=== PATIENT | male | born 1940 | race Two or more races ===

== ENCOUNTER 2017-08-18 00:14 | Inpatient (IN) | payer MEDICARE, OTHER ==
[~2017-08-18] VITALS: Ht 170.2 cm; Wt 86.3 kg
[2017-08-18] VITALS (8 sets, daily range): BP systolic 113–173; BP diastolic 59–77
[2017-08-18] MEDS ORDERED: Cefepime HCl 1 GM in D5W 55 ML IVPB ONE (01:00)
[2017-08-18 01:12] LABS: BASOPHILS % (AUTO) 0.8 % (0.0-2.0); MEAN CORPUSCULAR VOLUME 90 FL (80-99); MONOCYTES % (AUTO) 7.7 % (1.0-10.0); NEUTROPHILS % (AUTO) 64.4 % (45.0-75.0); PLATELET COUNT 152 K/UL (150-450); RED BLOOD COUNT 4.45 M/UL (4.70-6.10); WHITE BLOOD COUNT 9.7 K/UL (4.8-10.8)
[2017-08-18 01:12] LABS: BILIRUBIN, URINE NEGATIVE (NEGATIVE); COLOR,URINE PALE YELLOW; GLUCOSE, URINE (UA) NEGATIVE (NEGATIVE); KETONES,URINE NEGATIVE (NEGATIVE); LEUKOCYTE ESTERASE ,URINE 3+ (NEGATIVE); NITRITE,URINE POSITIVE (NEGATIVE); PH,URINE 6.5 (4.5-8.0); PROTEIN,URINE 3+ (NEGATIVE); UROBILINOGEN,URINE NORMAL MG/DL (0.0-1.0)
[2017-08-18 01:20] LABS: APPEARANCE,URINE CLOUDY
[2017-08-18 01:22] LABS: ANION GAP 9 mmol/L (5-15); BLOOD UREA NITROGEN 35 mg/dL (7-18); CALCIUM 9.1 MG/DL (8.5-10.1); CARBON DIOXIDE 28 MMOL/L (21-32); CHLORIDE 102 MMOL/L (98-107); CREATININE 1.6 MG/DL (0.55-1.30); POTASSIUM 4.1 MMOL/L (3.5-5.1); SODIUM 139 MMOL/L (136-145)
[2017-08-18 01:31] LABS: ALANINE AMINOTRANSFERASE 30 U/L (12-78); ALBUMIN 3.3 G/DL (3.4-5.0); ALBUMIN/GLOBULIN RATIO 0.7 (1.0-2.7); ALKALINE PHOSPHATASE 94 U/L (46-116); ASPARTATE AMINO TRANSFERASE 21 U/L (15-37); BILIRUBIN,TOTAL 0.4 MG/DL (0.2-1.0); CREATINE KINASE 118 U/L (26-308)
[2017-08-18] MEDS ORDERED: TORSEMIDE10 MG PO (02:28)
[2017-08-18] MEDS ORDERED: JANUVIA25 MG ORAL (02:28)
[2017-08-18] MEDS ORDERED: DETROL2 MG ORAL (02:28)
[2017-08-18] MEDS ORDERED: METFORMIN HCL1000 M1 ORAL (02:28)
[2017-08-18] MEDS ORDERED: HYDRALAZINE HCL25 M1 ORAL (02:28)
[2017-08-18] MEDS ORDERED: TAMSULOSIN HCL0.4 MG ORAL (02:31)
[2017-08-18] MEDS ORDERED: ASPIR 8181 MG ORAL (02:31)
[2017-08-18] MEDS ORDERED: VOLTAREN 1% TOPIC (02:31)
[2017-08-18] MEDS ORDERED: STARLIX60 MG ORAL (02:31)
[2017-08-18] MEDS ORDERED: CATAPRES0.2 MG ORAL (02:31)
[2017-08-18] MEDS ORDERED: ATORVASTATIN CA80 MG ORAL (02:33)
[2017-08-18] MEDS ORDERED: COREG12.5 MG ORAL (02:33)
[2017-08-18] MEDS ORDERED: LEVOTHYROXINE125 MCG ORAL (02:33)
[2017-08-18] MEDS ORDERED: MECLIZINE HCL12.5 MG ORAL (02:33)
--- NOTE | 2017-08-18 03:48 | Emergency Room Report ---
History of Present Illness General Chief Complaint: Back Pain-No Injury Source: Patient, Family Member, EMS Present Illness HPI Patient presents with increased weakness and some lethargy. He has had previous strokes in the past. He is being treated for a bladder infection at this time. He is on cefuroxime. The patient doesn't state that he has increased weakness at this time but his is reporting this. He denies any headache. According to paramedics he had complained of back pain, R flank area. Pain reported 6/10 aching, constant. EKG with BBB sent to [facility] and they directed the patient to us. CVA X 3 in past. Chronic L weakness. He states the same, but claims worsened. No pain, dyspnea, cough, sore throat, rashes, dysuria, change in bowels, joint pain, change in vision. Somewhat depressed. Diabetic on oral medication. Allergies: Coded Allergies: BENAZEPRIL (Verified Allergy, Unknown, Itching, 08/18/17) ALL OVER BODY ITCHING. Patient History Past Medical History: see triage record Social History: Denies: smoking, alcohol use Social History Narrative home Reviewed Nursing Documentation: PMH: Agreed; PSxH: Agreed Nursing Documentation-PMH Hx Hypertension: Yes Hx Diabetes: Yes Hx Cerebrovascular Accident: Yes Review of Systems All Other Systems: negative except mentioned in HPI Physical Exam Vital Signs Date Time Temp Pulse Resp B/P (MAP) Pulse Ox O2 Delivery O2 Flow Rate FiO2 08/18/17 00:19 98.7 78 16 172/88 99 Room Air 98.8 Sp02 EP Interpretation: reviewed, normal General Appearance: well appearing, no apparent distress, GCS 15 Head: normocephalic Eyes: bilateral eye normal inspection, bilateral eye PERRL ENT: moist mucus membranes Neck: supple Respiratory: lungs clear, normal breath sounds Cardiovascular #1: regular rate, rhythm Cardiovascular #2: 2+ radial (R) Gastrointestinal: normal inspection, normal bowel sounds, non tender, no mass, non-distended Genitourinary: no CVA tenderness Musculoskeletal: back normal, gait/station normal, normal range of motion Neurologic: alert, no Babinski, motor weakness - L hand/arm 4/5 versus R 5/5, oriented - X2 Psychiatric: depressed affect Skin: no rash Medical Decision Making Diagnostic Impression: Primary Impression: Sepsis Qualified Codes: A41.9 - Sepsis, unspecified organism Additional Impressions: Urinary tract infection Qualified Codes: N39.0 - Urinary tract infection, site not specified Status post stroke Renal insufficiency ER Course Patient with increased weakness, ALOC and treatment for UTI. claims L weakness and mentation is worsened. DDx: CVA, sepsis, UTI, electrolyte abnormality, AMI, pyelonephritis amongst others. Evaluation with CT, EKG, CXR and labs. Concern for possible UTI with resistant organisms. Difficult to assess status of L weakness as variable reports between and patient. Weakness might be due to underlying infection or other global process. IV hydration begun. EKG without injury. CXR clear. CT R parietal craniomalacia (not reported). Labs with normal WBC, pyuria, renal insufficiency. Antibiotics broadened. Complicated patient who needs observation and repeated neurologic evaluations with treatment of possible resistant UTI. Admit tele Dr. Oneil. Laboratory Tests Test 08/18/17 00:44 08/18/17 00:56 White Blood Count 9.7 K/UL (4.8-10.8) Red Blood Count 4.45 M/UL (4.70-6.10) L Hemoglobin 13.0 G/DL (14.2-18.0) L Hematocrit 40.0 % (42.0-52.0) L Mean Corpuscular Volume 90 FL (80-99) Mean Corpuscular Hemoglobin 29.3 PG (27.0-31.0) Mean Corpuscular Hemoglobin Concent 32.6 G/DL (32.0-36.0) Red Cell Distribution Width 14.0 % (11.6-14.8) Platelet Count 152 K/UL (150-450) Mean Platelet Volume 8.5 FL (6.5-10.1) Neutrophils (%) (Auto) 64.4 % (45.0-75.0) Lymphocytes (%) (Auto) 25.0 % (20.0-45.0) Monocytes (%) (Auto) 7.7 % (1.0-10.0) Eosinophils (%) (Auto) 2.0 % (0.0-3.0) Basophils (%) (Auto) 0.8 % (0.0-2.0) Prothrombin Time 10.8 SEC (9.30-11.50) Prothrombin Time INR 1.0 (0.9-1.1) PTT 30 SEC (23-33) Sodium Level 139 MMOL/L (136-145) Potassium Level 4.1 MMOL/L (3.5-5.1) Chloride Level 102 MMOL/L (98-107) Carbon Dioxide Level 28 MMOL/L (21-32) Anion Gap 9 mmol/L (5-15) Blood Urea Nitrogen 35 mg/dL (7-18) H Creatinine 1.6 MG/DL (0.55-1.30) H Estimate Glomerular Filtration Rate mL/min (>60) Glucose Level 195 MG/DL (74-106) H Lactic Acid Level 1.30 mmol/L (0.4-2.0) Calcium Level 9.1 MG/DL (8.5-10.1) Magnesium Level 2.1 MG/DL (1.8-2.4) Total Bilirubin 0.4 MG/DL (0.2-1.0) Aspartate Amino Transferase (AST) 21 U/L (15-37) Alanine Aminotransferase (ALT) 30 U/L (12-78) Alkaline Phosphatase 94 U/L (46-116) Total Creatine Kinase 118 U/L (26-308) Troponin I 0.003 ng/mL (0.000-0.056) Pro-B-Type Natriuretic Peptide 343 pg/mL (0-125) H Total Protein 8.3 G/DL (6.4-8.2) H Albumin 3.3 G/DL (3.4-5.0) L Globulin 5.0 g/dL Albumin/Globulin Ratio 0.7 (1.0-2.7) L Lipase 242 U/L (73-393) Urine Color Pale yellow Urine Appearance Cloudy Urine pH 6.5 (4.5-8.0) Urine Specific [place] 1.010 (1.005-1.035) Urine Protein 3+ (NEGATIVE) H Urine Glucose (UA) Negative (NEGATIVE) Urine Ketones Negative (NEGATIVE) Urine Occult Blood 3+ (NEGATIVE) H Urine Nitrite Positive (NEGATIVE) H Urine Bilirubin Negative (NEGATIVE) Urine Urobilinogen Normal MG/DL (0.0-1.0) Urine Leukocyte Esterase 3+ (NEGATIVE) H Urine RBC 5-10 /HPF (0 - 0) H Urine WBC Tntc /HPF (0 - 0) H Urine Squamous Epithelial Cells None /LPF (NONE/OCC) Urine Bacteria Many /HPF (NONE) H EKG Diagnostic Results Rate: normal Rhythm: NSR ST Segments: no acute changes Rhythm Strip Diag. 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 Last Vital Signs Date Time Temp Pulse Resp B/P (MAP) Pulse Ox O2 Delivery O2 Flow Rate FiO2 08/18/17 01:50 70 13 173/69 98 Room Air 08/18/17 00:19 98.7 98.8 Status: improved Disposition: ADMITTED INPATIENT Condition: Serious Referrals: NON PHYSICIAN (PCP) Fredy Christiansen M.D. Aug 18, 2017 03:48
[2017-08-18] MEDS ORDERED: Torsemide 10mg tab ORAL SCH (09:00)
[2017-08-18] MEDS: metFORMIN 500mg tab ORAL SCH ×2 (09:26→17:17)
[2017-08-18] MEDS: Tolterodine 2mg tab ORAL SCH ×2 (09:26→17:16)
[2017-08-18] MEDS: Aspirin Baby 81mg ORAL SCH (09:26)
[2017-08-18] MEDS: Carvedilol 12.5mg tab ORAL SCH ×2 (09:26→21:11)
[2017-08-18] MEDS: Heparin 5000 units/ml inj SUBQ SCH ×2 (09:27→21:13)
--- NOTE | 2017-08-18 09:49 | Diagnostic Imaging Report ---
Indication: Weakness Technique: Continuous helical CT scanning of the head was performed utilizing automated exposure control without intravenous contrast material. Axial and coronal reconstructions were obtained. Comparison: None CT dose: Total DLP 1347.93 mGycm; CTDI vol 70.38 mGy Findings: There is no acute intracranial hemorrhage, mass effect or midline shift. The ventricles, cisterns and sulci are prominent consistent with atrophy. Periventricular hypoattenuation is seen, a nonspecific finding is commonly related to sequela of chronic microvascular ischemia. There are atherosclerotic vascular calcifications. There is a more focal area of low attenuation in the right frontal lobe which is likely represent an area of chronic ischemia/encephalomalacia as there is ex vacuo dilatation of the anterior horn of the right lateral ventricle. Possibility of acute on chronic ischemia is not excluded. Visualized mastoid air cells are clear. There is opacification of some left-sided ethmoid cells as well as the left frontal sinus. No focal lesions of the bony calvarium or soft tissues of the scalp are seen. IMPRESSION: * No evidence of acute intracranial hemorrhage, mass effect or midline shift. * Focal area of low attenuation/encephalomalacia in the right frontal lobe likely sequela of remote ischemia. Correlate clinically. If there is concern for acute on chronic ischemia then further evaluation with MRI is recommended. * Atrophy and nonspecific periventricular hypoattenuation suggestive of chronic ischemic microvascular changes. * Mild sinus disease, likely acute in the left frontal sinus. This is slightly discrepant from the preliminary interpretation of the liver radiologist. Study obtained via the emergency department however patient admitted to the hospital at time of dictation of the final report. Findings of final report discussed with treating physician Dr. Oneil via telephone conversation approximately 9:40 AM on 08/18/2017. The CT scanner at [facility] is accredited by the [employer] and the scans are performed using protocols designed to limit radiation exposure to as low as reasonably achievable to attain images of sufficient resolution adequate for diagnostic evaluation.
--- NOTE | 2017-08-18 09:50 | Diagnostic Imaging Report ---
Indication: Weakness Technique: XRAY Chest 1v Comparison: None Findings: Heart size and mediastinal contours are within normal limits for technique. There is no focal consolidation, pneumothorax or pleural effusion. Osseous structures demonstrate no acute abnormality. Impression: No radiographic evidence of acute cardiopulmonary disease.
[2017-08-18] MEDS: HydrALAZINE 25mg tab ORAL SCH ×2 (12:00→17:16)
[2017-08-18] MEDS: NovoLOG Insulin Flexpen SUBQ SCH ×3 (12:09→21:00)
[2017-08-18] MEDS ORDERED: Piperacillin/Tazobactam 3.375 GM in D5W 110 ML IVPB SCH (14:00)
--- NOTE | 2017-08-18 14:05 | Cardiology Report ---
APPROVED REPORT EKG Measurement Heart [id number] IN [id number] [id number] Normal sinus rhythm T wave abnormality, consider anterior ischemia Abnormal ECG
[2017-08-18] MEDS: Piperacillin/Tazobactam 3.375 GM in NS 110 ML IVPB SCH ×2 (14:11→21:11)
[2017-08-18] MEDS: Atorvastatin 80mg tab ORAL SCH (21:10)
[2017-08-18] MEDS: Tamsulosin 0.4mg cap ORAL SCH (21:11)
--- NOTE | 2017-08-18 22:00 | History and Physical Report ---
DATE OF ADMISSION: 08/18/2017 CHIEF COMPLAINT AND REASON FOR HOSPITALIZATION: The patient admitted with dysuria, likely urinary tract infection, decline in status. HISTORY OF PRESENT ILLNESS: The patient is 77-year-old man with a history of prior strokes, hypertension, diabetes. He saw a doctor at a clinic a few days ago and was given oral antibiotics but despite that he is complaining of dysuria and generalized weakness, progressive. He has persistent pyuria. He has right low back pain, difficulty walking. He has had a stroke with left-sided weakness, uses a walker at home. PAST SURGERIES: Eye surgery and stimulator, it is not clear if that is spinal cord problems. HABITS: He is a nonsmoker and nondrinker currently. ALLERGIES: Benazepril. HOME MEDICATIONS: Listed on the computer include aspirin, atorvastatin, carvedilol, clonidine, hydralazine, levothyroxine, meclizine, metformin, Starlix, Januvia, tamsulosin, Detrol, torsemide, and Voltaren topical. SYSTEM REVIEW: HEAD, EYES, EARS, NOSE, AND THROAT: History of eye surgery with stable vision. Hearing is good. ENDOCRINE: History of diabetes. No thyroid disease. PULMONARY: No asthma or TB. CARDIAC: History of hypertension and hyperlipidemia. No angina or [place]. GASTROINTESTINAL: No ulcers or GI bleeding. GENITOURINARY: He has had a history of UTIs, some incontinence and dysuria. NEUROLOGIC: History of CVA with left-sided weakness in the past. PHYSICAL EXAMINATION: GENERAL: The patient is a well-developed man, sitting up in a chair. VITAL SIGNS: Temperature 97.8, pulse 68, respirations 20, and blood pressure 147/63. HEAD EYES, EARS, NOSE, AND THROAT: Sclerae are nonicteric. Ocular motions intact in all directions. Oral mucosa moist. NECK: No adenopathy or thyroid enlargement. LUNGS: Clear. HEART: Regular rhythm. I hear no murmur. ABDOMEN: Soft without organomegaly or masses. GENITOURINARY: Penis and testes normal. RECTAL: Deferred. EXTREMITIES: No edema, cyanosis or clubbing. There are degenerative changes in the knees. NEUROLOGIC: He is alert and responsive. Ocular motions intact in all directions. Smile is symmetric. He moves all extremities. [place] is equal bilaterally. He stands with mild assist and is able use a walker but has a mild left . PERTINENT LABORATORIES: White count 9.7, hemoglobin 13. BUN 35, creatinine 1.6. Electrolytes normal. Glucose 185. Troponin 0.003. Albumin 3.3. Urinalysis shows too numerous to count white cells per high-power field, 3+ proteinuria. IMPRESSION: 1. Urinary tract infection, possible pyelonephritis. 2. Right flank pain as above. 3. Benign prostatic hypertrophy. 4. Adult-onset diabetes. 5. History of CVA with imaging showing likely an old frontal infarct. 6. Gait disorder. 7. Osteoarthritis. 8. Diabetes. 9. Hypertension. PLAN: The patient will be put on broad-spectrum antibiotics, pending results of cultures, will get physical therapy and supportive care. Case discussed with the family in detail. Lars Oneil M.D. DR: Chaparrita JOB#: [id number] CC:
[2017-08-19] VITALS: BP 153/72
[2017-08-19] MEDS: HydrALAZINE 25mg tab ORAL SCH ×4 (02:21→17:23)
[2017-08-19 04:00] VITALS: BP 149/74
[2017-08-19] MEDS: sitaGLIPtin 50mg tab ORAL SCH (06:21)
[2017-08-19] MEDS: NovoLOG Insulin Flexpen SUBQ SCH ×4 (06:21→21:17)
[2017-08-19] MEDS: Piperacillin/Tazobactam 3.375 GM in NS 110 ML IVPB SCH ×3 (06:21→21:18)
[2017-08-19] MEDS: Levothyroxine 125mcg tab ORAL SCH (06:21)
[2017-08-19 06:50] LABS: BASOPHILS % (AUTO) 0.8 % (0.0-2.0); EOSINOPHILS % (AUTO) 3.3 % (0.0-3.0); HEMATOCRIT 36.8 % (42.0-52.0); HEMOGLOBIN 12.1 G/DL (14.2-18.0); LYMPHOCYTES % (AUTO) 26.8 % (20.0-45.0); MEAN CORPUSCULAR VOLUME 90 FL (80-99); MONOCYTES % (AUTO) 7.2 % (1.0-10.0); NEUTROPHILS % (AUTO) 61.9 % (45.0-75.0); PLATELET COUNT 161 K/UL (150-450); RED BLOOD COUNT 4.09 M/UL (4.70-6.10); RED CELL DISTRIBUTION WIDTH 13.4 % (11.6-14.8)
[2017-08-19 07:10] LABS: ALANINE AMINOTRANSFERASE 28 U/L (12-78); ALBUMIN 2.9 G/DL (3.4-5.0); ALBUMIN/GLOBULIN RATIO 0.6 (1.0-2.7); ALKALINE PHOSPHATASE 72 U/L (46-116); ANION GAP 9 mmol/L (5-15); ASPARTATE AMINO TRANSFERASE 22 U/L (15-37); BILIRUBIN,TOTAL 0.4 MG/DL (0.2-1.0); BLOOD UREA NITROGEN 27 mg/dL (7-18); CALCIUM 9.1 MG/DL (8.5-10.1); CARBON DIOXIDE 26 MMOL/L (21-32); CHLORIDE 105 MMOL/L (98-107); CREATININE 1.4 MG/DL (0.55-1.30); POTASSIUM 4.1 MMOL/L (3.5-5.1); SODIUM 139 MMOL/L (136-145)
[2017-08-19 08:02] VITALS: BP 152/80
[2017-08-19] MEDS: metFORMIN 500mg tab ORAL SCH ×2 (08:30→17:23)
[2017-08-19] MEDS: Aspirin Baby 81mg ORAL SCH (08:30)
[2017-08-19] MEDS: Carvedilol 12.5mg tab ORAL SCH ×2 (08:30→21:18)
[2017-08-19] MEDS: Tolterodine 2mg tab ORAL SCH ×2 (08:30→17:23)
[2017-08-19] MEDS: Heparin 5000 units/ml inj SUBQ SCH ×2 (08:33→21:17)
[2017-08-19 12:00] VITALS: BP 139/75
[2017-08-19 16:13] VITALS: BP 147/78
--- NOTE | 2017-08-19 18:08 | General Progress Note ---
Assessment/Plan Problem List: (1) Gait abnormality ICD Codes: R26.9 - Unspecified abnormalities of gait and mobility SNOMED: 07938888 (2) CVA, old, hemiparesis ICD Codes: I69.359 - Hemiplegia and hemiparesis following cerebral infarction affecting unspecified side SNOMED: 925712368 (3) Urinary tract infection ICD Codes: N39.0 - Urinary tract infection, site not specified SNOMED: 59810941 Qualifiers: Qualified Codes: N39.0 - Urinary tract infection, site not specified Assessment/Plan culture pend, did in and out cath home, check bladder us Subjective Constitutional: Reports: weakness HEENT: Reports: no symptoms Cardiovascular: Reports: no symptoms Respiratory: Reports: no symptoms Gastrointestinal/Abdominal: Reports: no symptoms Genitourinary: Reports: incontinence Neurologic/Psychiatric: Reports: pre-existing deficit Endocrine: Reports: no symptoms Hematologic/Lymphatic: Reports: no symptoms Allergies: Coded Allergies: BENAZEPRIL (Verified Allergy, Unknown, Itching, 08/18/17) ALL OVER BODY ITCHING. Objective Last 24 Hour Vital Signs Date Time Temp Pulse Resp B/P (MAP) Pulse Ox O2 Delivery O2 Flow Rate FiO2 08/19/17 17:23 147/78 08/19/17 16:13 98.5 89 20 147/78 (101) 95 98.5 08/19/17 12:28 152/80 08/19/17 12:00 98.3 75 19 139/75 (96) 99 98.3 08/19/17 08:30 81 152/80 08/19/17 08:02 98.0 81 19 152/80 (104) 96 98.0 08/19/17 07:59 Room Air 08/19/17 06:23 153/72 08/19/17 04:00 98.3 72 19 149/74 (99) 96 98.3 08/19/17 02:21 153/72 08/19/17 00:00 98.2 74 16 153/72 (99) 99 98.2 08/18/17 21:11 71 156/71 08/18/17 21:00 Room Air 08/18/17 20:00 97.9 71 17 156/71 (99) 95 97.9 Intake and Output 08/18/17 08/19/17 19:00 07:00 Intake Total 860 ml 317.5 ml Balance 860 ml 317.5 ml Intake Oral 300 ml 240 ml IV Total 560 ml 77.5 ml # Voids 2 2 Laboratory Tests 08/19/17 05:40: White Blood Count 8.0, Red Blood Count 4.09L, Hemoglobin 12.1L, Hematocrit 36.8L , Mean Corpuscular Volume 90, Mean Corpuscular Hemoglobin 29.5, Mean Corpuscular Hemoglobin Concent 32.8, Red Cell Distribution Width 13.4, Platelet Count 161, Mean Platelet Volume 8.1, Neutrophils (%) (Auto) 61.9, Lymphocytes (% ) (Auto) 26.8, Monocytes (%) (Auto) 7.2, Eosinophils (%) (Auto) 3.3H, Basophils (%) (Auto) 0.8, Sodium Level 139, Potassium Level 4.1, Chloride Level 105, Carbon Dioxide Level 26, Anion Gap 9, Blood Urea Nitrogen 27H, Creatinine 1.4H, Estimat Glomerular Filtration Rate , Glucose Level 113H, Calcium Level 9.1, Total Bilirubin 0.4, Aspartate Amino Transf (AST/SGOT) 22, Alanine Aminotransferase (ALT/SGPT) 28, Alkaline Phosphatase 72, Total Protein 7.7, Albumin 2.9L, Globulin 4.8, Albumin/Globulin Ratio 0.6L Height (Feet): 5 Height (Inches): 7.00 Weight (Pounds): 190 General Appearance: alert EENT: normal ENT inspection Neck: normal alignment Cardiovascular: normal rate, regular rhythm Respiratory/Chest: lungs clear Abdomen: non tender, soft 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
[2017-08-19 20:00] VITALS: BP 156/79
[2017-08-19] MEDS: Tamsulosin 0.4mg cap ORAL SCH (21:18)
[2017-08-19] MEDS: Atorvastatin 80mg tab ORAL SCH (21:18)
[2017-08-20] VITALS (7 sets, daily range): BP systolic 141–168; BP diastolic 72–87
[2017-08-20] MEDS: HydrALAZINE 25mg tab ORAL SCH ×4 (00:35→17:06)
[2017-08-20] MEDS: Piperacillin/Tazobactam 3.375 GM in NS 110 ML IVPB SCH (06:10)
[2017-08-20] MEDS: Levothyroxine 125mcg tab ORAL SCH (06:10)
[2017-08-20] MEDS: sitaGLIPtin 50mg tab ORAL SCH (06:10)
[2017-08-20] MEDS: NovoLOG Insulin Flexpen SUBQ SCH ×4 (06:15→20:30)
[2017-08-20] MEDS: Carvedilol 12.5mg tab ORAL SCH ×2 (08:44→20:29)
[2017-08-20] MEDS: Aspirin Baby 81mg ORAL SCH (08:45)
[2017-08-20] MEDS: metFORMIN 500mg tab ORAL SCH ×2 (08:45→17:06)
--- NOTE | 2017-08-20 08:48 | General Progress Note ---
Assessment/Plan Problem List: (1) Gait abnormality ICD Codes: R26.9 - Unspecified abnormalities of gait and mobility SNOMED: 60862176 (2) CVA, old, hemiparesis ICD Codes: I69.359 - Hemiplegia and hemiparesis following cerebral infarction affecting unspecified side SNOMED: 339619804 (3) Urinary tract infection ICD Codes: N39.0 - Urinary tract infection, site not specified SNOMED: 38975438 Qualifiers: Qualified Codes: N39.0 - Urinary tract infection, site not specified Assessment/Plan culture pend, did in and out cath home, check bladder us residual <100, esbl, ertapenam Subjective Constitutional: Reports: weakness HEENT: Reports: no symptoms Cardiovascular: Reports: no symptoms Respiratory: Reports: no symptoms Gastrointestinal/Abdominal: Reports: no symptoms Genitourinary: Reports: incontinence Neurologic/Psychiatric: Reports: pre-existing deficit Allergies: Coded Allergies: BENAZEPRIL (Verified Allergy, Unknown, Itching, 08/18/17) ALL OVER BODY ITCHING. Objective Last 24 Hour Vital Signs Date Time Temp Pulse Resp B/P (MAP) Pulse Ox O2 Delivery O2 Flow Rate FiO2 08/20/17 06:10 141/81 08/20/17 04:00 97.2 78 16 141/81 (101) 98 97.2 08/20/17 00:35 146/77 08/20/17 00:00 97.3 77 16 146/77 (100) 99 97.3 08/19/17 21:18 82 156/79 08/19/17 21:00 Room Air 08/19/17 20:00 98.6 82 18 156/79 (104) 95 98.6 08/19/17 17:23 147/78 08/19/17 16:13 98.5 89 20 147/78 (101) 95 98.5 08/19/17 12:28 152/80 08/19/17 12:00 98.3 75 19 139/75 (96) 99 98.3 Intake and Output 08/19/17 08/20/17 19:00 07:00 Intake Total 892.5 ml 910.0 ml Balance 892.5 ml 910.0 ml Intake Oral 700 ml 800 ml IV Total 192.5 ml 110.0 ml Bladder Scan Volume Amount <10 ml # Voids 3 3 Height (Feet): 5 Height (Inches): 7.00 Weight (Pounds): 190 General Appearance: no apparent distress EENT: PERRL/EOMI Neck: normal alignment Cardiovascular: normal rate Respiratory/Chest: lungs clear Abdomen: non tender, soft Edema: no edema noted Arm (L), no edema noted Arm (R), no edema noted Leg (L), no edema noted Leg (R), no edema noted Pedal (L), no edema noted Pedal (R), no edema noted 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
[2017-08-20] MEDS: Heparin 5000 units/ml inj SUBQ SCH ×2 (08:49→20:30)
[2017-08-20 09:24] LABS: BASOPHILS % (AUTO) 1.1 % (0.0-2.0); EOSINOPHILS % (AUTO) 4.6 % (0.0-3.0); HEMATOCRIT 39.9 % (42.0-52.0); HEMOGLOBIN 13.3 G/DL (14.2-18.0); LYMPHOCYTES % (AUTO) 32.9 % (20.0-45.0); MEAN CORPUSCULAR VOLUME 90 FL (80-99); MONOCYTES % (AUTO) 5.8 % (1.0-10.0); NEUTROPHILS % (AUTO) 55.7 % (45.0-75.0); PLATELET COUNT 199 K/UL (150-450); RED BLOOD COUNT 4.43 M/UL (4.70-6.10); RED CELL DISTRIBUTION WIDTH 13.3 % (11.6-14.8); WHITE BLOOD COUNT 6.1 K/UL (4.8-10.8)
[2017-08-20 09:43] LABS: ANION GAP 11 mmol/L (5-15); BLOOD UREA NITROGEN 23 mg/dL (7-18); CALCIUM 9.7 MG/DL (8.5-10.1); CARBON DIOXIDE 25 MMOL/L (21-32); CHLORIDE 105 MMOL/L (98-107); CREATININE 1.3 MG/DL (0.55-1.30); POTASSIUM 4.1 MMOL/L (3.5-5.1); SODIUM 141 MMOL/L (136-145)
[2017-08-20] MEDS ORDERED: Ertapenem 1 GM in NS 55 ML IVPB SCH (10:00)
[2017-08-20 19:11] LABS: APPEARANCE,URINE SLIGHTLY CLOUDY; BILIRUBIN, URINE NEGATIVE (NEGATIVE); COLOR,URINE PALE YELLOW; GLUCOSE, URINE (UA) NEGATIVE (NEGATIVE); KETONES,URINE NEGATIVE (NEGATIVE); LEUKOCYTE ESTERASE ,URINE 3+ (NEGATIVE); NITRITE,URINE NEGATIVE (NEGATIVE); PH,URINE 6 (4.5-8.0); PROTEIN,URINE 4+ (NEGATIVE); UROBILINOGEN,URINE NORMAL MG/DL (0.0-1.0)
[2017-08-20] MEDS: Atorvastatin 80mg tab ORAL SCH (20:29)
[2017-08-20] MEDS: Tamsulosin 0.4mg cap ORAL SCH (20:29)
[2017-08-21] MEDS: HydrALAZINE 25mg tab ORAL SCH ×3 (00:28→11:50)
[2017-08-21 00:37] VITALS: BP 179/88
[2017-08-21 04:10] VITALS: BP 172/78
[2017-08-21] MEDS: NovoLOG Insulin Flexpen SUBQ SCH ×2 (05:53→11:30)
[2017-08-21] MEDS: Levothyroxine 125mcg tab ORAL SCH (05:54)
[2017-08-21] MEDS: sitaGLIPtin 50mg tab ORAL SCH (05:54)
[2017-08-21 06:41] VITALS: BP 164/74
[2017-08-21 08:00] VITALS: BP 165/75
[2017-08-21] MEDS: metFORMIN 500mg tab ORAL SCH (08:49)
[2017-08-21] MEDS: Aspirin Baby 81mg ORAL SCH (08:49)
[2017-08-21] MEDS: Carvedilol 12.5mg tab ORAL SCH (08:50)
[2017-08-21] MEDS: Heparin 5000 units/ml inj SUBQ SCH (08:51)
[2017-08-21] MEDS ORDERED: Ertapenem 1 GM in NS 110 ML IV SCH (10:00)
[2017-08-21 12:00] VITALS: BP 151/76
[2017-08-21] MEDS ORDERED: Pneumococcal Vaccine 25mcg/0.5ml IM ONE (12:30)
--- NOTE | 2017-08-22 03:16 | Discharge Summary ---
DATE OF ADMISSION: 08/18/2017 DATE OF DISCHARGE: 08/21/2017 PERTINENT HISTORY: The patient is a 77-year-old man, who lives at home with family, presents with generalized weakness and difficulty walking and urinary tract infection. PERTINENT PHYSICAL FINDINGS: GENERAL: The patient is alert. LUNGS: Clear. HEART: Regular rhythm. No murmur. ABDOMEN: Soft. EXTREMITIES: No edema. He had unsteady gait with foot drag. COURSE IN THE HOSPITAL: The patient had pyuria and urine culture grew ESBL in the urine. He was given empiric antibiotics with Zosyn and switched to ertapenem when the cultures came back. He saw physical therapy, which helped him with gait training, but he was still a bit unsteady, required a walker, and can only go short distance. His dysuria improved and the postvoiding residuals remain less than 100 and , he was discharged home in improved condition. FINAL DIAGNOSES: 1. Urinary tract infection with extended-spectrum beta-lactamases in the urine. 2. Benign prostatic hypertrophy. 3. History of cerebrovascular accident with left-sided weakness. 4. Gait disorder. 5. Hyperlipidemia. 6. Hypertension. 7. Hypothyroidism. 8. Adult-onset diabetes. DISCHARGE DISPOSITION: Home. DISCHARGE MEDICATIONS: Per the discharge medication list. In addition, he will get IV ertapenem in my office on the day following discharge and serially the next week. Lars Oneil M.D. DR: EMANUEL JOB#: [id number] CC:
== END 2017-08-21 16:00 | disposition home or self-care (01) | DRG 690 ==
LOC: EDBD 00:14 → EMR 00:39 → 4W 01:54 → EDBEDREQ 03:48
DX: N39.0 Urinary tract infection, site not specified (principal); I69.954 Hemiplegia and hemiparesis following unspecified cerebrovascular disease affecting left non-dominant side; I10 Essential (primary) hypertension; E11.9 Type 2 diabetes mellitus without complications; M19.90 Unspecified osteoarthritis, unspecified site; N40.0 Benign prostatic hyperplasia without lower urinary tract symptoms; E03.9 Hypothyroidism, unspecified; E78.5 Hyperlipidemia, unspecified; Z16.12 Extended spectrum beta lactamase (ESBL) resistance
CPT/HCPCS: 36415; 70450; 71045; 80048; 80053; 81001; 81003; 82550; 82962; 83036; 83605; 83690; 83735; 83880; 84484; 85025; 85610; 85730; 87040; 87086; 87181; 90732; 93005; 99285; J1815

== ENCOUNTER 2017-08-24 10:16 | Emergency (ER) | payer MEDICARE, OTHER ==
[~2017-08-24] VITALS: Ht 167.6 cm; Wt 77.1 kg
[~2017-08-24 10:16] MED LIST: ASPIR 8181 MG ORAL; ATORVASTATIN CA80 MG ORAL; CATAPRES0.2 MG ORAL; COREG12.5 MG ORAL; DETROL2 MG ORAL; HYDRALAZINE HCL25 M1 ORAL; JANUVIA25 MG ORAL; LEVOTHYROXINE125 MCG ORAL; MECLIZINE HCL12.5 MG ORAL; METFORMIN HCL1000 M1 ORAL; STARLIX60 MG ORAL; TAMSULOSIN HCL0.4 MG ORAL; TORSEMIDE10 MG PO; VOLTAREN 1% TOPIC
[2017-08-24 10:20] VITALS: BP 146/78
[2017-08-24 11:39] LABS: BASOPHILS % (AUTO) 1.1 % (0.0-2.0); EOSINOPHILS % (AUTO) 2.8 % (0.0-3.0); HEMATOCRIT 39.2 % (42.0-52.0); LYMPHOCYTES % (AUTO) 27.3 % (20.0-45.0); MEAN CORPUSCULAR VOLUME 90 FL (80-99); MONOCYTES % (AUTO) 6.8 % (1.0-10.0); PLATELET COUNT 236 K/UL (150-450); RED BLOOD COUNT 4.36 M/UL (4.70-6.10); WHITE BLOOD COUNT 7.1 K/UL (4.8-10.8)
[2017-08-24 11:51] LABS: ANION GAP 10 mmol/L (5-15); BLOOD UREA NITROGEN 30 mg/dL (7-18); CALCIUM 9.5 MG/DL (8.5-10.1); CARBON DIOXIDE 26 MMOL/L (21-32); CHLORIDE 103 MMOL/L (98-107); CREATININE 1.5 MG/DL (0.55-1.30); POTASSIUM 3.9 MMOL/L (3.5-5.1); SODIUM 139 MMOL/L (136-145)
[2017-08-24 11:56] LABS: ALANINE AMINOTRANSFERASE 58 U/L (12-78); ALBUMIN 3.4 G/DL (3.4-5.0); ALBUMIN/GLOBULIN RATIO 0.7 (1.0-2.7); ALKALINE PHOSPHATASE 94 U/L (46-116); ASPARTATE AMINO TRANSFERASE 46 U/L (15-37); BILIRUBIN,TOTAL 0.3 MG/DL (0.2-1.0)
[2017-08-24 12:15] LABS: APPEARANCE,URINE CLEAR; BILIRUBIN, URINE NEGATIVE (NEGATIVE); COLOR,URINE PALE YELLOW; GLUCOSE, URINE (UA) NEGATIVE (NEGATIVE); KETONES,URINE NEGATIVE (NEGATIVE); LEUKOCYTE ESTERASE ,URINE 1+ (NEGATIVE); NITRITE,URINE NEGATIVE (NEGATIVE); PH,URINE 5 (4.5-8.0); PROTEIN,URINE 2+ (NEGATIVE); UROBILINOGEN,URINE NORMAL MG/DL (0.0-1.0)
[2017-08-24] MEDS ORDERED: Ertapenem 1 GM in NS 55 ML IVPB ONE (12:30)
--- NOTE | 2017-08-24 14:25 | Diagnostic Imaging Report ---
Indications: Transient episode of slurred speech this morning Technique: Spiral acquisitions obtained through the brain. Angled axial and coronal 5 x 5 mm slices were reconstructed. Total dose length product 1316.27 mGycm. CTDI vol(s) 70.38 mGy. Dose reduction achieved using automated exposure control Comparison: 08/18/2017 Findings: Wedge-shaped area of low-attenuation in the periphery of the posterior frontal lobe appears unchanged, consistent with an old infarct. Old lacunar infarct is also seen in the right basal ganglia region. Again demonstrated is age-related enlargement of the ventricles and extra axial CSF spaces. There is asymmetric dilatation of the right lateral ventricle, presumably on the basis of ex vacuo dilatation. There is periventricular deep white matter low-attenuation, consistent with chronic ischemic change. There is encephalomalacia of the anterior right temporal lobe again demonstrated, consistent with old infarct as well. The calvarium is intact. The visualized orbits are unremarkable. There is confluent left ethmoid and frontal sinus opacification, minimal. Findings are overall unchanged. Impression: Multiple old infarcts, as described Other chronic and age-related changes, as described. Negative for acute infiltrate bleed or mass effect The CT scanner at [facility] is accredited by the [employer] and the scans are performed using protocols designed to limit radiation exposure to as low as reasonably achievable to attain images of sufficient resolution adequate for diagnostic evaluation.
[2017-08-24 15:00] VITALS: BP 146/78
--- NOTE | 2017-08-24 15:25 | Emergency Room Report ---
History of Present Illness General Chief Complaint: Nausea Source: Family Member, EMS Present Illness HPI 77-year-old male presents ED for evaluation. Patient brought in by EMS. Family states the patient had nausea and vomiting this morning. Also stated that he was having palpitations at the time. Patient states he feels better at this time. [place] [facility] [place] Admitting physician was Dr. Puente. Denies chest pain or shortness of breath. Denies fevers or chills. Family states that they observed some trembling of the lips and face and thought he may have had a stroke. No slurred speech or facial droop. No arm or leg weakness. No other aggravating relieving factors. No other associated symptoms Allergies: Coded Allergies: BENAZEPRIL (Verified Allergy, Unknown, Itching, 08/18/17) ALL OVER BODY ITCHING. Patient History Past Medical History: DM, HTN, CVA/TIA Past Surgical History: none Pertinent Family History: none Social History: Denies: smoking, alcohol use, drug use Immunizations: UTD Reviewed Nursing Documentation: PMH: Agreed; PSxH: Agreed Nursing Documentation-PMH Hx Cardiac Problems: Yes Hx Hypertension: Yes Hx Diabetes: Yes Hx Neurological Problems: Yes Hx Cerebrovascular Accident: Yes Hx Brain Shunt: No Review of Systems All Other Systems: negative except mentioned in HPI Physical Exam Vital Signs Date Time Temp Pulse Resp B/P (MAP) Pulse Ox O2 Delivery O2 Flow Rate FiO2 08/24/17 10:12 98.0 78 16 146/78 98 Room Air 98.1 Sp02 EP Interpretation: reviewed, normal General Appearance: no apparent distress, alert, GCS 15, non-toxic Head: normocephalic, atraumatic Eyes: bilateral eye normal inspection, bilateral eye PERRL ENT: hearing grossly normal, normal pharynx, no angioedema, normal voice Neck: full range of motion, supple/symm/no masses Respiratory: chest non-tender, lungs clear, normal breath sounds, speaking full sentences Cardiovascular #1: regular rate, rhythm, no edema Cardiovascular #2: 2+ carotid (R), 2+ carotid (L), 2+ radial (R), 2+ radial (L) , 2+ dorsalis pedis (R), 2+ dorsalis pedis (L) Gastrointestinal: normal bowel sounds, non tender, soft, non-distended, no guarding, no rebound Rectal: deferred Genitourinary: normal inspection, no CVA tenderness Musculoskeletal: back normal, gait/station normal, normal range of motion, non- tender Neurologic: alert, oriented x3, responsive, motor strength/tone normal, sensory intact, speech normal Psychiatric: judgement/insight normal, memory normal, mood/affect normal, no suicidal/homicidal ideation Reflexes: 3+ bicep (R), 3+ bicep (L), 3+ tricep (R), 3+ tricep (L), 3+ knee (R) , 3+ knee (L) Skin: normal color, no rash, warm/dry, well hydrated Lymphatic: no adenopathy Medical Decision Making Diagnostic Impression: Primary Impression: Nausea and vomiting Qualified Codes: R11.2 - Nausea with vomiting, unspecified Additional Impression: UTI (urinary tract infection) Qualified Codes: N39.0 - Urinary tract infection, site not specified ER Course Hospital Course 77-year-old male presents ED complaining of palpitations, nausea and vomiting Differential diagnoses include: dehydration, ACS, gastritis Clinical course Patient placed on stretcher. 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 Puente. Reason patient can be safely discharged to home. Patient was scheduled to come to office today for IV dose of ertapenem. Given here. I do not suspect any evidence of CVA or TIA. Patient is safe for discharge. Dr. Puente agrees I. I feel this is a highly complex case requiring extensive working including EKG/Rhythm strip, Xray/CT/US, Blood/urine lab work, repeat exams while in ED, and administration of strong opiates/narcotics for pain control, admission to hospital or close patient follow up. Diagnosis - nausea and vomiting, UTI Stable and discharged to home. Followup with PMD. Return to ED if symptoms recur or worsen Labs Test 08/24/17 11:00 08/24/17 11:15 08/24/17 12:00 White Blood Count 7.1 K/UL (4.8-10.8) Red Blood Count 4.36 M/UL (4.70-6.10) Hemoglobin 13.0 G/DL (14.2-18.0) Hematocrit 39.2 % (42.0-52.0) Mean Corpuscular Volume 90 FL (80-99) Mean Corpuscular Hemoglobin 29.9 PG (27.0-31.0) Mean Corpuscular Hemoglobin Concent 33.2 G/DL (32.0-36.0) Red Cell Distribution Width 14.0 % (11.6-14.8) Platelet Count 236 K/UL (150-450) Mean Platelet Volume 7.8 FL (6.5-10.1) Neutrophils (%) (Auto) 62.0 % (45.0-75.0) Lymphocytes (%) (Auto) 27.3 % (20.0-45.0) Monocytes (%) (Auto) 6.8 % (1.0-10.0) Eosinophils (%) (Auto) 2.8 % (0.0-3.0) Basophils (%) (Auto) 1.1 % (0.0-2.0) Sodium Level 139 MMOL/L (136-145) Potassium Level 3.9 MMOL/L (3.5-5.1) Chloride Level 103 MMOL/L (98-107) Carbon Dioxide Level 26 MMOL/L (21-32) Anion Gap 10 mmol/L (5-15) Blood Urea Nitrogen 30 mg/dL (7-18) Creatinine 1.5 MG/DL (0.55-1.30) Estimat Glomerular Filtration Rate mL/min (>60) Glucose Level 135 MG/DL (74-106) Calcium Level 9.5 MG/DL (8.5-10.1) Total Bilirubin 0.3 MG/DL (0.2-1.0) Aspartate Amino Transf (AST/SGOT) 46 U/L (15-37) Alanine Aminotransferase (ALT/SGPT) 58 U/L (12-78) Alkaline Phosphatase 94 U/L (46-116) Troponin I 0.009 ng/mL (0.000-0.056) Total Protein 8.3 G/DL (6.4-8.2) Albumin 3.4 G/DL (3.4-5.0) Globulin 4.9 g/dL Albumin/Globulin Ratio 0.7 (1.0-2.7) Lipase 224 U/L (73-393) Urine Color Pale yellow Urine Appearance Clear Urine pH 5 (4.5-8.0) Urine Specific Benson 1.010 (1.005-1.035) Urine Protein 2+ (NEGATIVE) Urine Glucose (UA) Negative (NEGATIVE) Urine Ketones Negative (NEGATIVE) Urine Occult Blood 1+ (NEGATIVE) Urine Nitrite Negative (NEGATIVE) Urine Bilirubin Negative (NEGATIVE) Urine Urobilinogen Normal MG/DL (0.0-1.0) Urine Leukocyte Esterase 1+ (NEGATIVE) Urine RBC 0-2 /HPF (0 - 0) Urine WBC 2-4 /HPF (0 - 0) Urine Squamous Epithelial Cells Occasional /LPF Urine Bacteria Occasional /HPF (NONE) EKG Diagnostic Results Rate: normal Rhythm: NSR ST Segments: no acute changes ASA given to the pt in ED: No Rhythm Strip Diag. Results EP Interpretation: yes Rhythm: NSR, no PVC's, no ectopy CT/MRI/US Diagnostic Results CT/MRI/US Diagnostic Results : Imaging Test Ordered: CT Head Impression no acute process. multiple old infarcts Last Vital Signs Date Time Temp Pulse Resp B/P (MAP) Pulse Ox O2 Delivery O2 Flow Rate FiO2 08/24/17 10:20 98.1 77 16 146/78 98 Room Air 98.1 Status: improved Disposition: HOME, SELF-CARE Condition: Stable Referrals: CHRIS PUENTE Patient Instructions: Nausea and Vomiting, Adult Christoph Garza MD Aug 24, 2017 15:25
--- NOTE | 2017-08-25 03:00 | Progress Note ---
DATE: 08/24/2017 SUBJECTIVE: The patient recently left [facility] on IV antibiotics for UTI with ESBL. He was scheduled to come to my office today, but apparently as he felt bit oozy and dizzy. There is no true syncope. The family did not check his sugar, but he may have had a hypoglycemic episode. On arrival to the emergency room, he is alert and oriented passed. PERTINENT PHYSICAL FINDINGS: LUNGS: Clear. HEART: Regular rhythm. ABDOMEN: Soft. EXTREMITIES: No edema. NEUROLOGIC: He is alert and responsive with clear speech. Cranial nerves are intact. He moves all extremities with some mild weakness in the left leg. COURSE IN THE HOSPITAL: His laboratories are reviewed and no significant change from his recent hospital stay. CT brain was done, full report pending, but this will be checked with the ER physician. His condition clinically is back to baseline. I suspect that he may have had a hypoglycemic episode at home. This was discussed with the family, who will monitor his glucose carefully. The patient was given Invanz 1 g for the UTI ESBL while in the emergency room and he will follow up with Dr. Oneil on 08/25/2017 for outpatient evaluation and completion of antibiotics. Lars Oneil M.D. : Maria Fernanda JOB#: [id number] CC:
--- NOTE | 2017-08-25 16:42 | Cardiology Report ---
APPROVED REPORT EKG Measurement Heart [id number] Normal sinus rhythm Left bundle branch block Abnormal ECG
== END 2017-08-24 15:00 | disposition home or self-care (01) ==
LOC: EDBD 10:16 → EMR 11:10
DX: N39.0 Urinary tract infection, site not specified (principal); I10 Essential (primary) hypertension; E11.9 Type 2 diabetes mellitus without complications; Z86.73 Personal history of transient ischemic attack (TIA), and cerebral infarction without residual deficits; Z88.8 Allergy status to other drugs, medicaments and biological substances
CPT/HCPCS: 36415; 70450; 80053; 81003; 83690; 84484; 85025; 93005; 96361; 96365; 96375; 99284; J1335; J2405